=== PATIENT | female | born 1940 | race African-American/Black ===

== ENCOUNTER 2016-07-20 11:25 | Inpatient (IN) | payer MEDICAID, MEDICARE ==
[~2016-07-20] VITALS: Ht 162.6 cm; Wt 68.0 kg
[~2016-07-20 11:25] MED LIST: ATOR20TA PO; BENA20TA3 PO; CHOL100026 PO; CLON1TAB PO; ESCI20TA PO; MIRT30TA PO; MORP30TA54 PO; PREG75CA PO; TIZA4CAP PO; VANC125C4 PO
[2016-07-20] MEDS ORDERED: LEVOFLOXACIN 750MG PREMIX 150 ML IV ONE (12:30)
[2016-07-20] MEDS ORDERED: SODIUM CHLORIDE 0.9% 1000ML BAG (SEPSIS BOLUS) IV ONE (12:30)
[2016-07-20 13:00] LABS: BASOPHILS % 1.2 % (0.0-2.0); EOSINOPHILS % 1.3 % (0.0-5.0); HEMATOCRIT. 31.7 % (36.0-48.0); HEMOGLOBIN. 10.2 g/dL (12.0-16.0); LYMPHOCYTES % 15.9 % (20.0-50.0); MEAN CORPUSCULAR HEMOGLOBIN 27.9 pg (28.0-32.0); MEAN CORPUSCULAR HGB CONC 32.1 g/dL (31.0-37.0); MEAN CORPUSCULAR VOLUME 86.9 fL (81.0-99.0); MEAN PLATELET VOLUME 7.1 fl (7.4-10.4); MONOCYTES % 8.2 % (2.0-8.0); NEUTROPHILS % 73.4 % (40.0-76.0); PLATELET 616 x1000/uL (130-400); RED BLOOD CELL COUNT 3.65 mill/uL (4.2-5.4); RED CELL DISTRIBUTION WIDTH 14.9 % (11.6-14.6); WHITE BLOOD COUNT 11.4 x1000/uL (4.5-11.0)
[2016-07-20 13:10] LABS: INR 1.1; PROTHROMBIN TIME 11.4 sec
[2016-07-20 13:12] LABS: ALANINE AMINOTRANSFERASE 19 IU/L (13-61); ALBUMIN 2.8 g/dL (3.4-5.0); ANION GAP 14; CALCIUM 8.8 mg/dL (8.5-10.1); CARBON DIOXIDE 26 mEq/L (21-32); CHLORIDE 104 mEq/L (98-107); INDEX HEMOLYSI 1 (1-3); INDEX ICTERIC 1 (1-4); INDEX LIPEMIC 1 (1-3); UREA NITROGEN BLOOD 52 mg/dL (7-21); eGFR 17 mL/min (>60)
[2016-07-20 13:17] LABS: NT PRO B-TYPE NATRIURETIC PEP 1027 pg/mL (5-125); TROPONIN I < 0.02 ng/mL (0.00-0.04)
[2016-07-20 13:39] LABS: CLARITY URINE TURBID (CLEAR); COLOR URINE YELLOW (YELLOW); GLUCOSE URINE NEGATIVE (NEGATIVE); KETONES URINE NEGATIVE (NEGATIVE); LEUKOCYTE ESTERASE URINE 3+ (NEGATIVE); NITRITE URINE NEGATIVE (NEGATIVE); OCCULT BLOOD URINE 2+ (NEGATIVE); PROTEIN URINE 2+ (NEGATIVE); SPECIFIC GRAVITY URINE 1.018 (1.005-1.030); UROBILINOGEN URINE 0.2 E.U./dL (0.2-1.0)
[2016-07-20 13:53] LABS: BACTERIA URINE 1+; SQUAMOUS EPITHELIAL CELL URINE 2+ /lpf (RARE/1+); WBC URINE TNTC /hpf (0-2)
[2016-07-20 13:54] LABS: AMORPHOUS SEDIMENT URINE 1+ /lpf
[2016-07-20] MEDS ORDERED: ONDANSETRON HCL 4MG/2ML VIAL IV STA (15:14)
[2016-07-20] MEDS ORDERED: MORPHINE SULFATE 4 MG/ML CPJ (NOT FOR IM USE) IV STA (15:14)
[2016-07-20] MEDS ORDERED: ASPIRIN 325MG EC TABLET PO ONE (15:15)
[2016-07-20 21:00] VITALS: BP 109/62
[2016-07-20] MEDS ORDERED: ACETAMINOPHEN 650MG/20.3ML UDC GT PRN (21:30)
[2016-07-20] MEDS ORDERED: DEXTROSE 50% WATER 50ML SYRINGE IV PRN ×2 (21:30→22:15)
[2016-07-20] MEDS ORDERED: BENA40TA3 PO (21:59)
[2016-07-20] MEDS ORDERED: MORP15TA67 PO (21:59)
[2016-07-20] MEDS ORDERED: AMLO5TAB4 PO (21:59)
[2016-07-20] MEDS ORDERED: PREG50CA PO (21:59)
[2016-07-20] MEDS ORDERED: MORP30TA66 PO (22:08)
[2016-07-20] MEDS ORDERED: TIZA4TAB4 PO (22:09)
[2016-07-20] MEDS: ENOXAPARIN 30MG/0.3ML SYR SUBCUT SCH (22:58)
[2016-07-20] MEDS: SODIUM CHLORIDE 0.9% 1,000 ML IV SCH (22:58)
[2016-07-20] MEDS: CLONAZEPAM 1MG TABLET PO SCH (22:58)
[2016-07-20] MEDS: MORPHINE SULFATE 15MG TABLET SR PO SCH (23:14)
[2016-07-21] VITALS: BP 91/36
[2016-07-21 03:44] LABS: *AMPHETAMINES SCREEN URINE NEGATIVE (NEGATIVE); *BARBITURATES SCREEN URINE NEGATIVE (NEGATIVE); *BENZODIAZEPINES SCREEN URINE NEGATIVE (NEGATIVE); *COCAINE SCREEN URINE NEGATIVE (NEGATIVE); CANNABINOID URINE SCREEN NEGATIVE (NEGATIVE); ECSTASY MDMA SCREEN URINE NEGATIVE (NEGATIVE); METHADONE URINE SCREEN NEGATIVE (NEGATIVE); OPIATES URINE SCREEN PRESUMTIVE POSITIVE (NEGATIVE); PHENCYCLIDINE URINE SCREEN NEGATIVE (NEGATIVE)
[2016-07-21 04:00] VITALS: BP 104/61
[2016-07-21] MEDS: INSULIN LISPRO 100 UNITS/ML SUBCUT SCH ×4 (05:51→20:08)
[2016-07-21] MEDS: BLOOD SUGAR DIAGNOSTIC STRIP TEST SCH ×4 (05:51→20:08)
[2016-07-21] MEDS: CLONAZEPAM 1MG TABLET PO SCH ×3 (05:57→21:07)
[2016-07-21 06:22] LABS: EOSINOPHILS % 1.7 % (0.0-5.0); HEMATOCRIT. 27.4 % (36.0-48.0); LYMPHOCYTES % 19.1 % (20.0-50.0); MEAN CORPUSCULAR HEMOGLOBIN 28.1 pg (28.0-32.0); MEAN CORPUSCULAR HGB CONC 32.9 g/dL (31.0-37.0); MEAN CORPUSCULAR VOLUME 85.4 fL (81.0-99.0); MEAN PLATELET VOLUME 7.2 fl (7.4-10.4); MONOCYTES % 8.7 % (2.0-8.0); NEUTROPHILS % 69.5 % (40.0-76.0); PLATELET 559 x1000/uL (130-400); RED BLOOD CELL COUNT 3.21 mill/uL (4.2-5.4); RED CELL DISTRIBUTION WIDTH 14.6 % (11.6-14.6); WHITE BLOOD COUNT 9.1 x1000/uL (4.5-11.0)
[2016-07-21] MEDS ORDERED: BLOOD SUGAR DIAGNOSTIC STRIP TEST SCH (06:45)
[2016-07-21 08:00] VITALS: BP 100/57
[2016-07-21 08:00] LABS: ALANINE AMINOTRANSFERASE 14 IU/L (13-61); ALBUMIN 2.2 g/dL (3.4-5.0); CALCIUM 8.1 mg/dL (8.5-10.1); CHLORIDE 109 mEq/L (98-107); HDL CHOLESTEROL 54 mg/dL (40-59); INDEX HEMOLYSI 1 (1-3); INDEX ICTERIC 1 (1-4); INDEX LIPEMIC 1 (1-3); LDL CHOLESTEROL 101 mg/dL (5-100); MAGNESIUM 2.2 mg/dL (1.8-2.4); UREA NITROGEN BLOOD 37 mg/dL (7-21); eGFR 33 mL/min (>60)
[2016-07-21 08:08] LABS: ANION GAP 10; CARBON DIOXIDE 29 mEq/L (21-32); PHOSPHORUS 2.9 mg/dL (2.5-4.9); PREALBUMIN 6.8 mg/dL (20.0-40.0); TRIGLYCERIDE 112 mg/dL (0-150)
[2016-07-21] MEDS: MORPHINE SULFATE 15MG TABLET SR PO SCH ×2 (08:26→20:09)
[2016-07-21] MEDS ORDERED: PNEUMOCOCCAL 23-VAL P-SAC VAC 0.5 ML IM ONE (09:00)
[2016-07-21] MEDS ORDERED: MORPHINE SULFATE 15MG TABLET SR PO SCH (09:00)
[2016-07-21] MEDS: SODIUM CHLORIDE 0.9% 1,000 ML IV SCH ×2 (11:56→17:18)
[2016-07-21 12:00] VITALS: BP 111/58
[2016-07-21 16:00] VITALS: BP 108/64
[2016-07-21 20:00] VITALS: BP 91/56
[2016-07-21] MEDS: ATORVASTATIN CALCIUM 20MG TABLET PO SCH (20:04)
[2016-07-21] MEDS: ENOXAPARIN 30MG/0.3ML SYR SUBCUT SCH (20:05)
[2016-07-21] MEDS: MIRTAZAPINE 30MG TABLET PO SCH (20:05)
[2016-07-22] VITALS: BP 97/56
[2016-07-22] MEDS: SODIUM CHLORIDE 0.9% 1,000 ML IV SCH ×2 (01:29→12:05)
[2016-07-22 04:00] VITALS: BP 123/76
[2016-07-22] MEDS: BLOOD SUGAR DIAGNOSTIC STRIP TEST SCH ×4 (05:51→20:49)
[2016-07-22] MEDS: CLONAZEPAM 1MG TABLET PO SCH ×3 (05:51→21:27)
[2016-07-22] MEDS: INSULIN LISPRO 100 UNITS/ML SUBCUT SCH ×4 (06:20→20:50)
[2016-07-22 07:06] LABS: BASOPHILS % 0.8 % (0.0-2.0); EOSINOPHILS % 2.9 % (0.0-5.0); HEMATOCRIT. 28.3 % (36.0-48.0); HEMOGLOBIN. 9.3 g/dL (12.0-16.0); LYMPHOCYTES % 34.8 % (20.0-50.0); MEAN CORPUSCULAR HGB CONC 32.8 g/dL (31.0-37.0); MEAN CORPUSCULAR VOLUME 85.3 fL (81.0-99.0); MEAN PLATELET VOLUME 7.1 fl (7.4-10.4); MONOCYTES % 9.6 % (2.0-8.0); NEUTROPHILS % 51.9 % (40.0-76.0); PLATELET 540 x1000/uL (130-400); RED BLOOD CELL COUNT 3.32 mill/uL (4.2-5.4); RED CELL DISTRIBUTION WIDTH 14.9 % (11.6-14.6); WHITE BLOOD COUNT 7.3 x1000/uL (4.5-11.0)
[2016-07-22 08:00] VITALS: BP 142/81
[2016-07-22] MEDS: MORPHINE SULFATE 15MG TABLET SR PO SCH ×2 (08:26→20:46)
[2016-07-22] MEDS: ZINC SULFATE 220 MG ( 50 ) CAPSULE PO SCH (08:26)
[2016-07-22 12:00] VITALS: BP 127/92
[2016-07-22] MEDS: LISINOPRIL 20MG TABLET PO SCH (13:30)
[2016-07-22] MEDS: ASCORBIC ACID 250 MG TABLET PO SCH (13:30)
[2016-07-22] MEDS: SODIUM CHLORIDE 0.45% 1,000 ML IV SCH (13:30)
[2016-07-22 15:07] LABS: *CREATININE RANDOM URINE 76.8 mg/dL (Not Estab.); MICROALBUMIN RANDOM URINE 36.2 ug/mL (Not Estab.); MICROALBUMIN/CREATININE RATIO 47.1 mg/g creat (0.0-30.0)
[2016-07-22 16:00] VITALS: BP 123/75
[2016-07-22 20:00] VITALS: BP 138/79
[2016-07-22] MEDS: ATORVASTATIN CALCIUM 20MG TABLET PO SCH (20:45)
[2016-07-22] MEDS: MIRTAZAPINE 30MG TABLET PO SCH (20:45)
[2016-07-22] MEDS: ENOXAPARIN 40MG/0.4ML SYR SUBCUT SCH (20:47)
[2016-07-23] VITALS: BP 128/74
[2016-07-23] MEDS: SODIUM CHLORIDE 0.45% 1,000 ML IV SCH ×3 (03:40→23:44)
[2016-07-23 04:00] VITALS: BP 112/62
[2016-07-23] MEDS: DOCUSATE SODIUM 100MG CAPSULE PO PRN (04:46)
[2016-07-23] MEDS: CLONAZEPAM 1MG TABLET PO SCH ×2 (05:46→21:05)
[2016-07-23] MEDS: BLOOD SUGAR DIAGNOSTIC STRIP TEST SCH ×4 (05:46→20:21)
[2016-07-23 06:49] LABS: BASOPHILS % 0.8 % (0.0-2.0); EOSINOPHILS % 2.9 % (0.0-5.0); LYMPHOCYTES % 29.4 % (20.0-50.0); MEAN CORPUSCULAR HEMOGLOBIN 28.3 pg (28.0-32.0); MEAN CORPUSCULAR HGB CONC 33.4 g/dL (31.0-37.0); MEAN CORPUSCULAR VOLUME 84.7 fL (81.0-99.0); MEAN PLATELET VOLUME 7.3 fl (7.4-10.4); MONOCYTES % 7.8 % (2.0-8.0); NEUTROPHILS % 59.1 % (40.0-76.0); PLATELET 520 x1000/uL (130-400); RED BLOOD CELL COUNT 3.19 mill/uL (4.2-5.4); RED CELL DISTRIBUTION WIDTH 14.5 % (11.6-14.6); WHITE BLOOD COUNT 9.9 x1000/uL (4.5-11.0)
[2016-07-23] MEDS: INSULIN LISPRO 100 UNITS/ML SUBCUT SCH ×4 (06:52→20:49)
[2016-07-23 07:38] LABS: ALANINE AMINOTRANSFERASE 11 IU/L (13-61); ALBUMIN 2.2 g/dL (3.4-5.0); ANION GAP 12; CALCIUM 8.1 mg/dL (8.5-10.1); CARBON DIOXIDE 28 mEq/L (21-32); CHLORIDE 106 mEq/L (98-107); INDEX HEMOLYSI 1 (1-3); INDEX ICTERIC 1 (1-4); INDEX LIPEMIC 1 (1-3); IRON 22 ug/dL (50-175); MAGNESIUM 1.5 mg/dL (1.8-2.4); TOTAL IRON BINDING CAPACITY 191 ug/dL (250-450); UREA NITROGEN BLOOD 18 mg/dL (7-21); eGFR 59 mL/min (>60)
[2016-07-23 07:51] LABS: FOLIC ACID (FOLATE) SERUM 5.2 ng/mL (>5.38)
[2016-07-23 08:00] VITALS: BP 123/76
[2016-07-23] MEDS: ZINC SULFATE 220 MG ( 50 ) CAPSULE PO SCH (08:54)
[2016-07-23] MEDS: MORPHINE SULFATE 15MG TABLET SR PO SCH ×2 (08:54→20:46)
[2016-07-23] MEDS: LISINOPRIL 20MG TABLET PO SCH (08:54)
[2016-07-23] MEDS: ASCORBIC ACID 250 MG TABLET PO SCH (08:54)
[2016-07-23 12:00] VITALS: BP 126/79
[2016-07-23] MEDS ORDERED: MAGNESIUM 2 G PREMIX 50 ML IV NR (14:00)
[2016-07-23 16:00] VITALS: BP 138/75
[2016-07-23] MEDS: FERROUS SULFATE 325MG TABLET PO SCH (16:35)
[2016-07-23] MEDS: FOLIC ACID 1MG TABLET PO SCH (16:35)
[2016-07-23 20:00] VITALS: BP 130/81
[2016-07-23] MEDS: ATORVASTATIN CALCIUM 20MG TABLET PO SCH (20:45)
[2016-07-23] MEDS: MIRTAZAPINE 30MG TABLET PO SCH (20:46)
[2016-07-23] MEDS: ENOXAPARIN 40MG/0.4ML SYR SUBCUT SCH (20:47)
[2016-07-24] VITALS: BP 132/72
[2016-07-24 04:00] VITALS: BP 120/73
[2016-07-24] MEDS: CLONAZEPAM 1MG TABLET PO SCH ×3 (05:42→22:18)
[2016-07-24] MEDS: BLOOD SUGAR DIAGNOSTIC STRIP TEST SCH ×4 (05:44→21:00)
[2016-07-24 07:11] LABS: CHLORIDE 106 mEq/L (98-107); INDEX HEMOLYSI 1 (1-3); INDEX ICTERIC 1 (1-4); INDEX LIPEMIC 1 (1-3)
[2016-07-24] MEDS: INSULIN LISPRO 100 UNITS/ML SUBCUT SCH ×4 (07:15→21:00)
[2016-07-24 07:31] LABS: ANION GAP 12; CALCIUM 8.2 mg/dL (8.5-10.1); CARBON DIOXIDE 28 mEq/L (21-32); MAGNESIUM 2.2 mg/dL (1.8-2.4); UREA NITROGEN BLOOD 14 mg/dL (7-21); eGFR > 60 mL/min (>60)
[2016-07-24 08:00] VITALS: BP 129/89
[2016-07-24] MEDS: FOLIC ACID 1MG TABLET PO SCH (08:41)
[2016-07-24] MEDS: FERROUS SULFATE 325MG TABLET PO SCH ×2 (08:41→16:54)
[2016-07-24] MEDS: ZINC SULFATE 220 MG ( 50 ) CAPSULE PO SCH (08:41)
[2016-07-24] MEDS: MORPHINE SULFATE 15MG TABLET SR PO SCH ×2 (08:42→22:20)
[2016-07-24] MEDS: ASCORBIC ACID 250 MG TABLET PO SCH (08:42)
[2016-07-24] MEDS: LISINOPRIL 20MG TABLET PO SCH (08:46)
[2016-07-24 12:00] VITALS: BP 116/48
[2016-07-24 16:00] VITALS: BP 107/64
[2016-07-24 20:00] VITALS: BP 104/66
[2016-07-24] MEDS: MIRTAZAPINE 30MG TABLET PO SCH (22:18)
[2016-07-24] MEDS: ATORVASTATIN CALCIUM 20MG TABLET PO SCH (22:18)
[2016-07-24] MEDS: ENOXAPARIN 40MG/0.4ML SYR SUBCUT SCH (22:22)
[2016-07-24] MEDS: DOCUSATE SODIUM 100MG CAPSULE PO PRN (22:40)
[2016-07-25] VITALS (7 sets, daily range): BP systolic 107–131; BP diastolic 61–75
[2016-07-25] MEDS: CLONAZEPAM 1MG TABLET PO SCH ×2 (06:24→16:41)
[2016-07-25] MEDS: BLOOD SUGAR DIAGNOSTIC STRIP TEST SCH ×2 (06:24→11:45)
[2016-07-25] MEDS: SODIUM CHLORIDE 0.45% 1,000 ML IV SCH (06:25)
[2016-07-25] MEDS: INSULIN LISPRO 100 UNITS/ML SUBCUT SCH ×2 (06:25→12:15)
[2016-07-25] MEDS: FERROUS SULFATE 325MG TABLET PO SCH (10:23)
[2016-07-25] MEDS: LISINOPRIL 20MG TABLET PO SCH (10:23)
[2016-07-25] MEDS: ASCORBIC ACID 250 MG TABLET PO SCH (10:25)
[2016-07-25] MEDS: ZINC SULFATE 220 MG ( 50 ) CAPSULE PO SCH (10:25)
[2016-07-25] MEDS: MORPHINE SULFATE 15MG TABLET SR PO SCH (10:26)
[2016-07-25] MEDS: FOLIC ACID 1MG TABLET PO SCH (10:26)
== END 2016-07-25 21:20 | disposition home health service (06) | DRG 682 ==
LOC: ER 11:27 → 5WST 15:15
PROVIDERS: ADMIT Internal Medicine; ATTEND Internal Medicine
DX: N17.0 Acute kidney failure with tubular necrosis (principal); L89.154 Pressure ulcer of sacral region, stage 4; E43 Unspecified severe protein-calorie malnutrition; G93.41 Metabolic encephalopathy; N39.0 Urinary tract infection, site not specified; R64 Cachexia; Z66 Do not resuscitate; R62.7 Adult failure to thrive; B19.20 Unspecified viral hepatitis C without hepatic coma; E86.0 Dehydration; E83.42 Hypomagnesemia; E86.1 Hypovolemia; D50.9 Iron deficiency anemia, unspecified; D63.8 Anemia in other chronic diseases classified elsewhere; E11.9 Type 2 diabetes mellitus without complications; E78.00 Pure hypercholesterolemia, unspecified; E83.51 Hypocalcemia; G89.4 Chronic pain syndrome; I95.9 Hypotension, unspecified; R82.71 Bacteriuria; Z79.84 Long term (current) use of oral hypoglycemic drugs; B96.89 Other specified bacterial agents as the cause of diseases classified elsewhere; I10 Essential (primary) hypertension; J44.9 Chronic obstructive pulmonary disease, unspecified; M17.0 Bilateral primary osteoarthritis of knee; M48.02 Spinal stenosis, cervical region; M51.36 Other intervertebral disc degeneration, lumbar region; M79.7 Fibromyalgia; Z79.899 Other long term (current) drug therapy; Z90.49 Acquired absence of other specified parts of digestive tract; Z90.710 Acquired absence of both cervix and uterus; Z68.25 Body mass index [BMI] 25.0-25.9, adult
CPT/HCPCS: 36415; 51702; 70450; 71010; 76770; 80048; 80053; 80061; 80305; 81001; 82043; 82270; 82306; 82570; 82607; 82728; 82746; 82962; 83036; 83540; 83550; 83605; 83735; 83880; 84100; 84134; 84484; 85025; 85610; 85730; 86850; 86870; 86900; 87040; 87086; 87186; 90732; 92610; 93005; 93970; 96361; 96365; 96375; 97116; 97162; 97530; 99285; A6261; C1893; J1650; J1815; J1956; J2270; J2405; J3475; J7030